=== PATIENT | male | born 1990 | race Two or more races ===

== ENCOUNTER 2021-03-23 13:41 | Emergency (ER) | payer OTHER ==
[~2021-03-23] VITALS: Ht 167.6 cm; Wt 77.1 kg
[2021-03-23 17:02] VITALS: BP 113/68
== END 2021-03-23 17:26 | disposition home or self-care (01) ==
LOC: ER 13:41
DX: S61.412A Laceration without foreign body of left hand, initial encounter (principal); W25.XXXA Contact with sharp glass, initial encounter; Y93.89 Activity, other specified; Y92.89 Other specified places as the place of occurrence of the external cause; Y99.8 Other external cause status
CPT/HCPCS: 12002

== ENCOUNTER 2021-03-30 19:17 | Emergency (ER) | payer MEDICAID, OTHER ==
[~2021-03-30] VITALS: Ht 167.6 cm; Wt 77.1 kg
[2021-03-30] MEDS ORDERED: ACETAMINOPHEN 650 mg PER 20.3 mL UD PO ONE (19:30)
[2021-03-30] MEDS ORDERED: ACETAMINOPHEN 325 MG TAB PO ONE (19:41)
[2021-03-30] MEDS ORDERED: IBUPROFEN 600 MG TAB PO ONE (19:48)
[2021-03-30 20:22] VITALS: BP 120/70
== END 2021-03-30 21:34 | disposition home or self-care (01) ==
LOC: ER 19:17
DX: S61.412D Laceration without foreign body of left hand, subsequent encounter (principal); J06.9 Acute upper respiratory infection, unspecified; X58.XXXD Exposure to other specified factors, subsequent encounter
CPT/HCPCS: 36415; 87426